=== PATIENT | male | born 1965 | race Caucasian/White ===

== ENCOUNTER 2017-10-29 10:51 | Emergency (ER) | payer OTHER, SELFPAY ==
[~2017-10-29] VITALS: Ht 165.1 cm; Wt 75.0 kg
[~2017-10-29 10:51] MED LIST: AMOX1TAB16 PO; PANT40TA25 PO; QUET25TA PO; SERT50TA12 PO
[2017-10-29 11:46] VITALS: BP 121/79
== END 2017-10-29 12:49 | disposition home or self-care (01) ==
LOC: EMS 10:52
DX: A63.0 Anogenital (venereal) warts (principal)
CPT/HCPCS: 99283